=== PATIENT | male | born 1970 | race African-American/Black ===

== ENCOUNTER 2025-08-01 03:33 | Emergency (ER) | payer OTHER, SELFPAY ==
[2025-08-01 03:35] VITALS: BMI 32.8
[2025-08-01 03:36] VITALS: BP 158/90; PULSE 80; RESP 19; TEMP 36.8; O2SAT 96; BMI 32.8
--- NOTE | 2025-08-01 03:47 | XR_ITS ---
Examination: Retroperitoneal ultrasound, complete Technique: Multiple high resolution grayscale images of the retroperitoneum obtained, including kidneys and bladder. Exam date and time: August 01, 2025, 0359 hours INDICATIONS: Painful urination beginning 1 week ago FINDINGS: Right kidney 10.7 cm renal cortex 1.9 cm Left kidney 11.1 cm renal cortex 1.8 cm No hydronephrosis or renal calculi No bladder mass or bladder calculi Bladder prevoid volume 365 cc unable to void Significant prostatomegaly 6.6 x 6.7 x 6.6 cm volume 152.88 cc no prostate nodules IMPRESSION: Significant prostatomegaly, no prostate nodules
[2025-08-01 04:21] LABS: Basophils # (Auto) 0.0 Thou/mm3 (0.0-0.2); Basophils % (Auto) 1 % (0-2.5); Eosinophils # (Auto) 0.1 Thou/mm3 (0.0-0.5); Eosinophils % (Auto) 2 % (0-10); Hematocrit 42.4 % (41.0-53.0); Hemoglobin 13.5 g/dL (13.5-16.0); Immature Granulocytes Auto 0.03 Thou/mm3 (0.00-0.00); Lymphocytes # (Auto) 2.5 Thou/mm3 (1.0-4.8); Lymphocytes % (Auto) 38 % (10-50); Mean Corpuscular HGB Conc 31.8 g/dl (31.0-37.0); Mean Corpuscular Hemoglobin 29.0 pg (25.0-35.0); Mean Corpuscular Volume 91 fL (80-100); Monocytes # (Auto) 0.6 Thou/mm3 (0.0-0.8); Monocytes % (Auto) 9 % (0-12); Neutrophils # (Auto) 3.3 Thou/mm3 (1.8-7.7); Neutrophils % (Auto) 50 % (37-80); Nucleated Red Blood Cell # 0.00 Thou/mm3 (0.00-0.00); Nucleated Red Blood Cell % 0 /100 WBC (0); Platelet Count 160 Thou/mm3 (140-440); RDW Standard Deviation 44.6 fL (35.1-43.9); Red Blood Count 4.66 Miln/mm3 (4.50-5.90); White Blood Count 6.6 Thou/mm3 (3.8-10.6)
--- NOTE | 2025-08-01 04:21 | PD.EDRME ---
Rapid Medical Screening Exam E Arrival date/time: 08/01/25 03:33 This is a case of 55-year-old male with no medical history came into the emergency room due to bilateral flank pain and painful urination for 3 days worsening symptoms this patient decided to start consult here in the emergency room Chief Complaint: General Adult/Misc Complain Time Seen by Provider: 08/01/25 03:47 Vital signs: Vital Signs Temperature 98.3 F 08/01/25 03:36 Pulse Rate 80 08/01/25 03:36 Respiratory Rate 19 08/01/25 03:36 Blood Pressure 158/90 H 08/01/25 03:36 Pulse Oximetry (%) 96 08/01/25 03:36 Oxygen Delivery Method Room Air 08/01/25 03:36 Exam: Positive tenderness on the both flank no crackles no rales no retraction no stridor abdominal soft no guarding no rebound no rigidity no tenderness Clinical Impression: Flank pain
[2025-08-01 04:35] LABS: Alanine Aminotransferase 36 U/L (10-49); Albumin, Serum 5.1 gm/dL (3.5-5.0); Albumin/Globulin Ratio 2.3 (1.2-2.2); Alkaline Phosphatase 61 U/L (46-116); Anion Gap 6 (7-16); Aspartate Amino Transferase 29 U/L (0-34); BUN/Creatinine Ratio 9 Ratio (12-20); Bilirubin,Total 0.7 mg/dL (0.3-1.2); Blood Urea Nitrogen 10 mg/dL (9-23); Calcium 9.7 mg/dL (8.3-10.6); Calcium (Corrected) 9.7 mg/dL (8.5-10.1); Carbon Dioxide 31.5 mMol/L (20.0-31.0); Chloride 104 mMol/L (98-107); Creatinine (Component) 1.1 mg/dL (0.6-1.3); Estimated Creatinine Clearance 92.0 mL/min (>60); Globulin 2.2 gm/dL (2.3-3.5); Glucose 133 mg/dL (74-106); Osmolality,Calculated 282 (275-295); Potassium 4.3 mMol/L (3.4-5.1); Sodium 141 mMol/L (136-145); Total Protein 7.3 gm/dL (5.7-8.2); eGFR > 60 See Note
[2025-08-01 05:00] LABS: Prostate Specific Antigen 12.84 ng/mL (0-4.00)
--- NOTE | 2025-08-01 05:21 | PRELIM_ITS ---
Renal/Retroperitoneal ultrasound. August 01, 2025 at 0359 hours Clinical history: Pelvis pain. Technique: Duplex scan of the bilateral renal arterial and venous tree was performed utilizing 2D grayscale imaging, Doppler spectral analysis and color flow. Comparison: No prior study is available for comparison. Findings: Duplex ultrasound of the bilateral kidneys and urinary bladder was performed using 2D grayscale imaging, colour Doppler, and spectral Doppler analysis. The right kidney measures 10.7 cm in length and the left kidney measures 11.1 cm. Both kidneys are normal in echogenicity and cortical thickness (right cortex 1.9 cm, left cortex 1.8 cm). No hydronephrosis, renal calculus, or focal lesion is identified. The corticomedullary differentiation is preserved bilaterally. The urinary bladder is distended with a Pre Void volume of approximately 365 mL. The patient is unable to void, and bilateral ureteric jets are not visualized during the study. The prostate gland is markedly enlarged, measuring 6.6 ?? 6.7 ?? 6.6 cm with an estimated volume of 153 mL and weight of 160 g. Impression: Significant prostatic enlargement (153 mL) consistent with benign prostatic hypertrophy (BPH), likely contributing to urinary retention. Distended urinary bladder (365 mL) with absent ureteric jets, suggestive of outflow obstruction.Correlation with post-void residual volume, urinary catheterisation, and urology consultation is advised to manage bladder outlet obstruction and assess for secondary effects on renal function. Both kidneys appear normal in size and cortical echotexture with no hydronephrosis or calculus. Report Electronically Signed By: Fantasma Sterling 08/01/2025 5:20:22 AM [EST]
[2025-08-01 05:58] LABS: Collection Type, Urine Voided
[2025-08-01 06:11] LABS: Bacteria,Urine 2+; Bilirubin,Urine Negative (Negative); Blood,Urine Negative (Negative); Clarity,Urine Turbid (Clear/Hazy); Color,Urine Lt-Yellow (Lt Yel-Yel); Glucose, Urine Negative (Negative); Ketones,Urine Negative (Negative); Leukocyte Esterase,Urine Positive (Negative); Nitrite,Urine Positive (Negative); PH,Urine 7.0 (5.0-7.0); Protein,Urine 1+ (Neg - Trace); RBC,Urine 9 /hpf (0-3); Specific Gravity,Urine 1.018 (1.001-1.035); Squamous Epithelial Cell,Urine 1 /hpf (0-5); Urobilinogen,Urine Negative mg/dL (0.0-1.0); WBC,Urine 257 /hpf (0-5)
--- NOTE | 2025-08-01 06:55 | EDNOTE_ITS ---
<Statement entered by Olga Read MD - 08/01/25 17:55> As co-signing physician, I was present and available for consult prn. I concur with the plan and care as documented by the midlevel provider. ED Male Genitalurinary RME/HPI General Chief complaint: General Adult/Misc Complain Stated complaint: pain l flank and painful urination Time Seen by Provider: 08/01/25 03:47 Source: patient Arrival date/time: 08/01/25 03:33 55-year-old male with no known medical history presents to the emergency room with a chief complaint of dysuria and flank pain x 1 week Mode of arrival: ambulatory Limitations: no limitations RME / HPI RME / HPI Narrative: 08/01/25 03:33 This is a case of 55-year-old male with no medical history came into the em ergency room due to bilateral flank pain and painful urination for 3 days worsening symptoms this patient decided to start consult here in the emergency room Exam: Positive tenderness on the both flank no crackles no rales no retraction no stridor abdominal soft no guarding no rebound no rigidity no tenderness Impression: Flank pain Related Data Previous Rx's ?Medication ?Instructions ?Recorded sulfamethoxazole 800 1 tab PO BID #14 tabs mg-trimethoprim 160 mg tablet (Bactrim DS) tamsulosin 0.4 mg capsule (Flomax) 0.4 mg PO QDAY #30 caps 08/01/25 Allergies Allergy/AdvReac Type Severity Reaction Status Date / Time No Known Allergies Allergy Verified 08/01/25 03:39 Review of Systems Review of Systems Systems Reviewed: All systems reviewed, normal except as documented Constitutional Constitutional: Reports system reviewed and no additional complaints, except as documented, Denies fatigue, Denies fever(s), Denies headache(s) and Denies weakness Eyes Eyes: Reports system reviewed and no additional complaints, except as documented, Denies blurry vision and Denies change in vision ENT Ears, Nose, Mouth, and Throat: Reports system reviewed and no additional complaints, except as documented, Denies otalgia, Denies headache(s), Denies nasal congestion, Denies throat swelling and Denies vertigo Cardiovascular Cardiovascular: Reports system reviewed and no additional complaints, except as documented, Denies chest pain, Denies dyspnea and Denies dyspnea on exertion Respiratory Respiratory: Reports system reviewed and no additional complaints, except as documented, Denies chest congestion, Denies cough, Denies dyspnea, Denies dyspnea on exertion and Denies wheezing Gastrointestinal Gastrointestinal: Reports system reviewed and no additional complaints, except as documented, Denies abdominal pain, Denies cramping, Denies nausea and Denies vomiting Genitourinary Genitourinary: Reports system reviewed and no additional complaints, except as documented, Reports difficulty urinating, Reports dysuria and Reports hematuria Musculoskeletal Musculoskeletal: Reports system reviewed and no additional complaints, except as documented and Denies back pain Integumentary/Breasts Skin/Breast: Reports system reviewed and no additional complaints, except as documented and Denies wounds Neurologic Neurologic: Reports system reviewed and no additional complaints, except as documented, Denies confusion, Denies headache(s), Denies lack of coordination, Denies vertigo and Denies weakness Psychiatric Psychiatric: Reports system reviewed and no additional complaints, except as documented, Denies anxiety, Denies confusion, Denies depression, Denies paranoia, Denies suicidal ideation and Denies tactile hallucinations Endocrine Endocrine: Reports system reviewed and no additional complaints, except as documented and Denies fatigue Hematologic/Lymphatic Hematologic/Lymphatic: Reports system reviewed and no additional complaints, except as documented and Denies lymphadenopathy Allergic/Immunologic Allergic/Immunologic: Reports system reviewed and no additional complaints, except as documented, Denies throat swelling, Denies urticaria and Denies wheezing Past Medical History Social History SMOKING STATUS: Never smoker ED Exam General Limitations: Present no limitations General appearance: Present alert and in no apparent distress Head Head exam: Present atraumatic Eye Eye exam: Present normal appearance, PERRL and EOMI ENT ENT exam: Present normal exam, normal oropharynx and mucous membranes moist Neck Neck exam: Present normal inspection, full ROM and trachea midline Chest Chest inspection: Present normal inspection and symmetric chest wall rise Respiratory Respiratory exam: Present normal lung sounds bilaterally Cardiovascular Cardiovascular exam: Present regular rate, normal rhythm and normal heart sounds Abdominal Exam Abdominal exam: Present soft and normal bowel sounds; Absent distention, tenderness, guarding or rebound Abdominal tenderness: Absent epigastrium or suprapubic Extremities Exam Extremities exam: Present normal inspection and full ROM Back Exam Back exam: Present normal inspection and full ROM Neurological Exam Neurological exam: Present alert, oriented X3 and CN II-XII intact Psychiatric Psychiatric exam: Present normal affect and normal mood Skin Skin exam: Present warm, dry, intact and normal color Course Quality Measures none Orders Category Date Time Status US renal BI Stat Exams 08/01/25 03:47 Taken CBC Stat Lab 08/01/25 04:14 Completed CMP [Comprehensive Metabolic Panel] Stat Lab 08/01/25 04:14 Completed PSA [Prostate Specific Antigen] Stat Lab 08/01/25 04:14 Completed Urinalysis Stat Lab 08/01/25 05:54 Completed Vital Signs Vital signs: Vital Signs Temperature 98.3 F 08/01/25 03:36 Pulse Rate 80 08/01/25 03:36 Respiratory Rate 19 08/01/25 03:36 Blood Pressure 158/90 H 08/01/25 03:36 Pulse Oximetry (%) 96 08/01/25 03:36 Oxygen Delivery Method Room Air 08/01/25 03:36 Urogenital - Male MDM Narrative MDM Narrative:: 55-year-old male with no known medical history presents to the emergency room with a chief complaint of dysuria and flank pain x 1 week Patient is hemodynamically stable and in no apparent distress Physical examination shows a soft nontender abdomen. The patient is afebrile not tachycardic and not tachypneic Patient states his main complaint is not fully being able to empty out his urine as well as burning when he urinates. Ultrasound was completed and shows the patient has an enlarged prostate. This enlarged prostate is causing him to have urinary retention as well as a urinary tract infection. The patient was educated and told that a Ac catheter will be needed but the patient refused and states he wants to try medication first. The patient states he is still able to urinate some and states that he does not want to have a leg bag in place. The patient was educated that he needs to follow-up with his primary care provider as he will need a referral to urologist for further management of his BPH. Patient states he will call his urologist today at 8 AM, states he will strip picker his Flomax and Bactrim medication as soon as he gets out of the emergency room, and states that he will return to the emergency room for any evidence of urinary retention and will get his Ac catheter. Patient was discharged and educated to follow-up with primary care provider in the next 24 to 48 hours and return to the emergency room for any evidence of worsening signs or symptoms Patient data External records reviewed:: [facility] previous records Clinical information provided by:: patient Social determinants that could affect healthcare access:: none Patient has the following chronic illnesses:: BPH How is presenting disease/condition affected by chronic disease/condition?: exacerbated by Evaluation data The following diagnostics were reviewed and interpreted by me:: lab results and radiology exam(s) Lab and/or radiology exams considered but not ordered:: Labs and radiology exams considered and ordered Interpretation Summary: Ultrasound renal-Impression: Significant prostatic enlargement (153 mL) consistent with benign prostatic hypertrophy (BPH), likely contributing to urinary retention. Distended urinary bladder (365 mL) with absent ureteric jets, suggestive of outflow obstruction.Correlation with post-void residual volume, urinary catheterisation, and urology consultation is advised to manage bladder outlet obstruction and assess for secondary effects on renal function. Both kidneys appear normal in size and cortical echotexture with no hydronephrosis or calculus. Medications / Prescriptions Medications or Prescriptions considered but not ordered:: Rx given Medication administrations:: Rx given Consultations Consultation(s) initiated? (list below): No Diagnosis Urogenital Male Differential Diagnosis: urinary tract infection, prostatitis, acute retention of urine and other (BPH/UTI) Most likely diagnosis given after review of the tests above:: BPH/UTI Admission Indicated Admission indicated?: not indicated Admission Request Was there a request for admission?: No Disposition Plan Disposition Plan: Discharge Discharge Attestation Discharge Attestation: The patient and all family members were given an opportunity to ask questions and understood the discharge instructions. Discharge instructions specifically effects, indications for sooner follow up or return to the emergency department, and the expected course of current diagnosis. Patient condition: Stable Discharge Plan Plan Patient Disposition: HOME (Self Care) Discharge Disposition comment: Stable Prescriptions/Referrals Prescriptions/Med Rec: New tamsulosin [Flomax] 0.4 mg capsule 0.4 mg PO QDAY Qty: 30 0RF sulfamethoxazole-trimethoprim [Bactrim DS] 800-160 mg tablet 1 tab PO BID Qty: 14 0RF Referrals: No Primary/Family,Physician [Primary Care Provider] - In 1 week Problem List Clinical Impression: Benign prostatic hyperplasia (BPH) with straining on urination, Urinary tract infection Patient/Caregiver Discharge Instructions Education Materials: ED BPH (Enlarged Prostate), ED Bladder Infection, Male (Adult) Additional Instructions: Please follow-up with your primary care provider in the next 24 to 48 hours You need a referral to a urologist as soon as possible to manage your enlarged prostate. This enlarged prostate is causing your urinary retention, and a urinary tract infection. At this time you did not want a Ac catheter and wanted to try medication first. At this time you are able to urinate small amounts but are not able to fully empty out your bladder. This can stop at any time causing complete urinary retention. If this happens please return to the emergency room immediately for a Ac catheter. For any evidence of worsening signs or symptoms return to emergency room immediately Print Language: Yoruba Stand Alone Forms: Kelsey Award Info., Work/School Release, Patient Portal Info Letter PA/CONTRACT OFFICER Supervising Physician PA/STORMY Supervising Physician: Dr. Neville
[2025-08-01 06:59] VITALS: BP 158/89; PULSE 67; RESP 17; TEMP 36.6; O2SAT 97
== END 2025-08-01 07:07 | disposition home or self-care (01) ==
PROVIDERS: Nurse Practitioner Family; Emergency Provider Nurse Practitioner Family
DX: R10.A3 Flank pain, bilateral (principal); R39.16 Straining to void; N30.90 Cystitis, unspecified without hematuria; N32.0 Bladder-neck obstruction; N40.0 Benign prostatic hyperplasia without lower urinary tract symptoms
CPT/HCPCS: 36415; 76770; 80053; 81001; 84153; 85025; 99283